=== PATIENT | female | born 1995 | race Two or more races ===

== ENCOUNTER 2017-12-29 16:28 | Emergency (ER) | payer SELFPAY ==
[2017-12-29 16:59] VITALS: PULSE 68; RESP 16; O2SAT 99
--- NOTE | 2017-12-29 17:34 | ED PDOC ---
Lower Extremity Pain/Injury Time Seen by Provider: 12/29/17 17:00 Chief Complaint (Nursing): Lower Extremity Problem/Injury Chief Complaint (Provider): Lower extremity problem/injury History Per: Patient History/Exam Limitations: no limitations Onset/Duration Of Symptoms: Hrs (earlier today) Current Symptoms Are (Timing): Still Present Additional Complaint(s): 22 year old female presented to the ED complaining of a right foot injury which occurred earlier today. Patient reports she stepped on a piece of glass with her right foot and was unable to remove it. Tetanus is unknown. PCP: none provided Past Medical History Reviewed: Historical Data, Nursing Documentation, Vital Signs Vital Signs: Last Vital Signs Temp 98.6 F 12/29/17 16:57 Pulse 68 12/29/17 16:57 Resp 16 12/29/17 16:57 BP 109/59 L 12/29/17 16:57 Pulse Ox 99 12/29/17 16:57 - Medical History PMH: No Chronic Diseases - Surgical History Surgical History: No Surg Hx - Family History Family History: States: Unknown Family Hx - Social History Current smoker - smoking cessation education provided: No Alcohol: None Drugs: Denies - Immunization History Hx Tetanus Toxoid Vaccination: Yes Hx Influenza Vaccination: Yes Hx Pneumococcal Vaccination: No - Allergies Allergies/Adverse Reactions: Allergies Allergy/AdvReac Type Severity Reaction Status Date / Time pineapple Allergy RASH Verified 12/29/17 16:57 Review of Systems ROS Statement: Except As Marked, All Systems Reviewed And Found Negative Musculoskeletal: Positive for: Other (Right foot injury) Physical Exam - Reviewed Nursing Documentation Reviewed: Yes Vital Signs Reviewed: Yes - Physical Exam Appears: Positive for: Non-toxic, No Acute Distress Head Exam: Positive for: ATRAUMATIC, NORMOCEPHALIC Skin: Positive for: Normal Color, Warm, Dry Eye Exam: Positive for: Normal appearance Extremity: Positive for: Normal ROM Neurologic/Psych: Positive for: Alert, Oriented. Negative for: Motor/Sensory Deficits Comments: RIGHT FOOT: Small superficial wound to plantar surface with palpable foreign body. No active bleeding or surrounding erythema. - Laboratory Results Urine POC: Negative - ECG O2 Sat by Pulse Oximetry: 99 (RA) Pulse Ox Interpretation: Normal - Radiology X-Ray: Interpreted by Me (R foot x-ray) X-Ray Interpretation: No Acute Disease - Progress ED Course And Treament: Wound was irrigated with normal saline and foreign body removed with tweezers without difficulty. No bleeding noted. Wound irrigated again without foreign body noted. Medical Decision Making Medical Decision Making: Initial Impression: Right foot injury Initial Plan: Right foot X-ray Scribe Attestation: Documented by Luis Slater acting as a scribe for Mookie Bernal. Provider Scribe Attestation: All medical record entries made by the Scribe were at my direction and personally dictated by me. I have reviewed the chart and agree that the record accurately reflects my personal performance of the history, physical exam, medical decision making, and the department course for this patient. I have also personally directed, reviewed, and agree with the discharge instructions and disposition. Disposition - Clinical Impression Clinical Impression: Foreign body in subcutaneous tissue - Patient ED Disposition Is Patient to be Admitted: No - Disposition Referrals: [facility] [Outside] [facility] [Outside] Disposition: Routine/Home Disposition Time: 18:36 Condition: STABLE Additional Instructions: Follow up with PMD for further evaluation. Return to ED immediately if symptoms worsen. Instructions: Foreign Body in Skin (DC) Forms: [employer] ([place])
[2017-12-29] MEDS ORDERED: Tdap Vaccine 0.5 ml Vial (10-64 yrs) IM ONE ×2 (18:34→18:46)
[2017-12-29 18:55] VITALS: BP 110/60; TEMP 98.5
--- NOTE | 2017-12-30 08:32 | RAD ---
PROCEDURE: Right Foot Radiographs. HISTORY: possible FB COMPARISON: None. FINDINGS: BONES: No acute fracture or destructive bony lesion identified. JOINTS: Normal. SOFT TISSUES: Normal. OTHER FINDINGS: None. IMPRESSION: Unremarkable right foot radiographs.
== END 2017-12-29 19:10 | disposition home or self-care (01) ==
LOC: H.ER 16:28
DX: M79.5 Residual foreign body in soft tissue (principal)